=== PATIENT | male | born 1980 | race Two or more races ===

== ENCOUNTER 2021-04-13 11:46 | Emergency (ER) | payer OTHER ==
[~2021-04-13] VITALS: Ht 172.7 cm; Wt 81.6 kg
== END 2021-04-13 19:36 | disposition home or self-care (01) ==
LOC: ER 11:46
DX: R10.31 Right lower quadrant pain (principal); Z03.818 Encounter for observation for suspected exposure to other biological agents ruled out
CPT/HCPCS: 74177; 76700; Q9965

== ENCOUNTER 2022-10-10 12:48 | Emergency (ER) | payer OTHER ==
[~2022-10-10] VITALS: Ht 172.7 cm; Wt 82.1 kg
[2022-10-10] MEDS ORDERED: ATORVASTATIN CA20 MG (13:13)
[2022-10-10] MEDS ORDERED: KETO10TA2 PO (16:00)
[2022-10-10] MEDS ORDERED: NORFLEX100MG PO (16:00)
== END 2022-10-10 16:15 | disposition home or self-care (01) ==
LOC: ER 12:48
DX: M54.50 Low back pain, unspecified (principal)